=== PATIENT | female | born 1980 | race Caucasian/White ===

== ENCOUNTER 2017-06-26 12:20 | Emergency (ER) | payer BC, SELFPAY ==
[2017-06-26 12:15] VITALS: BP 151/82; PULSE 104; RESP 24; TEMP 36.9; O2SAT 99; BMI 32.3
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
--- NOTE | 2017-06-26 12:58 | PC.NURSE ---
Eye Chart Vision Check Results Both Eyes - 20/25 LT Eye - 20/25 Rt Eye - 20/50 Blurred vision. no previous history of vision problems.
[2017-06-26 13:04] VITALS: BP 112/75; PULSE 75; RESP 18; TEMP 36.7; O2SAT 98
== END 2017-06-26 13:04 | disposition home or self-care (01) ==
PROVIDERS: Emergency Provider Emergency Medicine; Family Provider Physician Assistant; PCP Physician Assistant
DX: T23.161A Burn of first degree of back of right hand, initial encounter (principal); T24.121A Burn of first degree of right knee, initial encounter; T26.00XA Burn of unspecified eyelid and periocular area, initial encounter; F41.8 Other specified anxiety disorders; E78.5 Hyperlipidemia, unspecified; F90.9 Attention-deficit hyperactivity disorder, unspecified type; Z88.2 Allergy status to sulfonamides; F17.210 Nicotine dependence, cigarettes, uncomplicated; X02.8XXA Other exposure to controlled fire in building or structure, initial encounter; Y92.019 Unspecified place in single-family (private) house as the place of occurrence of the external cause
CPT/HCPCS: 90471; 99281; 99282